=== PATIENT | female | born 2000 | race Two or more races ===

== ENCOUNTER 2022-06-19 09:58 | Emergency (ER) | payer MEDICAID ==
[~2022-06-19] VITALS: Ht 167.6 cm; Wt 63.0 kg
[2022-06-19 10:20] VITALS: BP 117/81
[2022-06-19] MEDS ORDERED: IBUPROFEN 600MG TABLET PO ONE (13:15)
[2022-06-19] MEDS ORDERED: METHOCARBAMOL 500MG TABLET PO ONE (13:15)
[2022-06-19] MEDS ORDERED: NAPR-681 MT (15:16)
[2022-06-19] MEDS ORDERED: METH-773 MT (15:16)
[2022-06-19] MEDS ORDERED: LIDO1ADH23 TP (15:16)
== END 2022-06-19 15:23 | disposition home or self-care (01) ==
LOC: ER 09:58
DX: S16.1XXA Strain of muscle, fascia and tendon at neck level, initial encounter (principal); X58.XXXA Exposure to other specified factors, initial encounter; Y93.89 Activity, other specified; Y92.89 Other specified places as the place of occurrence of the external cause
CPT/HCPCS: 72040; 81025; 99283